=== PATIENT | female | born 2000 | race Caucasian/White ===

== ENCOUNTER 2023-07-11 23:23 | Emergency (ER) | payer OTHER, SELFPAY ==
[2023-07-11 23:26] VITALS: BP 140/94
--- NOTE | 2023-07-11 23:59 | ED.GENMED ---
History of Present Illness
General
Chief Complaint: Bowel Problem
Source: patient and significant other
Time Seen by Provider: 07/11/23 23:34
Travel History
Have you had any contact with someone who has COVID-19?: No
Do you have any symptoms of coronavirus? Fever > 100 degrees, chills, cough, shortness of breath, sore throat, loss of taste or smell, muscle aches, or headache?: No
History of Present Illness
History of Present Illness:
This patient is a 22-year-old female who states that for at least the last 1 if not 2 months she has had intermittent constipation relieved with laxatives. Her last bowel movement was this morning and states that she passed 'a decent amount' of
stool without black stool or blood. However, since that time, she complains of tyree cramping associated with an episode of vomiting just prior to presentation. She feels abdominal distention and feels 'full' to the point where she has not eaten
as much as she typically would today. Patient states that she went out to dinner last night and does admit to admit to drinking alcohol at that time. She denies objective measurement of fever, chest pain, shortness of breath, urinary symptoms.
Her last menstrual cycle was 1 week ago. The abdominal cramping is intermittent and generalized. Patient wanted to come today to make sure everything was okay.
Past History
Past History
ED Past Medical History: Psychiatric (ADHD, anxiety, depression, bipolar disorder)
ED Past Surgical History: Other (Breast reduction)
Social History
Tobacco: Smoker
Alcohol: Binge drinker
Drug: Other (amphetamines)
Personal: Single
Living: with family
Employment: Employed
Phy Exam
Physical Exam
Physical Exam:
GENERAL: Alert , in no apparent distress
EYE: pupils equal and reactive
NECK: Supple, no significant adenopathy.
ENT: o/p clr, mmm.
CARDIAC: Regular rate and rhythm .
LUNGS: Clear breath sounds bilaterally, no acute respiratory distress, no wheezes/rales/rhonchi
ABDOMEN: Soft, without focal tenderness, no r/g, normal active bowel sounds, no cvat
NEUROLOGICAL: Alert and oriented, no focal neuro deficits
SKIN: Warm and dry, skin intact.
MUSCULOSKELETAL: No edema, well perfused.
PSYCH: Normal and appropriate interaction.
Course
Orders/Labs/Results
Orders:
Orders
07/11/23 23:59
Complete Blood Count/No Diff Urgent
Comprehensive Metabolic Panel Urgent
HCG, Serum Qualitative Screen Urgent
Lipase Urgent
Test Result ONCE
07/12/23 00:01
CR Obstruct Series W/pa Chest Urgent
Reason For Exam: N/V/CONSTIPATION
Abnormal Lab Results
07/12/23
00:29
Sodium 134 L mmol/L
(135-145)
Chloride 97 L mmol/L
(98-107)
Glucose 106 H mg/dl
(70-99)
07/12/23 00:29
07/12/23 00:29
Vital Signs
Initial and Last Documented VS:
Initial Vital Signs
Temp Pulse Resp BP Pulse Ox
98.7 F 124 22 140/94 98
07/11/23 23:26 07/11/23 23:26 07/11/23 23:26 07/11/23 23:26 07/11/23 23:26
Last Documented Vital Signs
Temp Pulse Resp BP Pulse Ox
98.7 F 115 20 123/76 100
07/11/23 23:26 07/12/23 00:47 07/12/23 00:47 07/12/23 00:47 07/12/23 00:47
*Critical Care Note
Total Time (30-74mins, 75-104mins- exclusive of procedures): Not Applicable
Update Note
Update Note:
Patient presents to the Emergency Department with abdominal pain and vomiting
Number and Complexity of Problems Addressed at the Encounter
� Chronic conditions affecting care:
� Acute Exacerbation and/or Progression of Chronic Illness:
� Differential Diagnosis includes: But not limited to bowel obstruction constipation, IBS, , etc.
Amount and/or Complexity of Data to be Reviewed and Analyzed
� I performed an independent evaluation of and my interpretation is:
EKG:
CT:
Xrays:read by me,no obstruction, no fa, nad
Laboratory Studies:generally unremkarable
Other:
� Review of other/old records reveals:
� Clinical information was obtained by an independent historian: Significant other who is at bedside
� Prescriptions/Medications Considered but not given:
� Further testing considered but not performed:
Risk of Complications and/or Morbidity or Mortality of Patient Management
� Social determinants of health affecting care:
� Discussion with other providers (PCP, Hospitalists, Consultants, etc):
� Escalation of care including admission/observation vs risk of discharge considered: 110 am W/u unremkarable here,a bd soft and nontnder. Low suspcion for acute emergent pathology given reassuring exam and w/u here. D/w pt
import of f/ua nd reasons to rted.
ED Attending Note
-
Portions of this chart may have been created with voice recognition software.� Occasional wrong word or��sound alike� substitutions may have occurred due to the inherent limitations of voice recognition software.
Discharge Plan
Departure
Patient Disposition: Home (Routine Discharge)
Date of Disposition: 07/12/23
Time of Disposition: :24
Patient with high blood pressure during this ER visit?: Yes
Condition: Good
Discharge Problem:
Abdominal pain
Instructions: Abdominal Pain, BLOOD PRESSURE
Prescriptions:
No Action
No Current Medications
0
Referrals:
[facility] [Provider Group] - Next open appointment
[facility] [Outside]
NONE,* [Family Provider] -
Activity Restrictions/Additional Instructions:
IF YOU DEVELOP INCREASING NEW OR RECURRENT ABDOMINAL PAIN, REPEATED VOMITING, BLEEDING, FEVER, CHEST PAIN, SHORTNESS OF BREATH, OR OTHER WORRISOME SIGNS, PLEASE RETURN TO THE ER IMMEDIATELY.
Interventions
Interventions:
*Risk Screen - Suicide Last Done: 07/11/23 23:26
*General Assessment Last Done: 07/12/23 00:18
*Neglect/Abuse Screening Last Done: 07/11/23 23:26
*ED COVID-19 Vaccine History Last Done: 07/12/23 00:18
SD-Vgnjxq-Ayjicleiuw Assessment Last Done: 07/12/23 00:31
[2023-07-12 00:18] VITALS: BMI 27.9
[2023-07-12 00:38] LABS: Hematocrit 39.1 % (37.0-47.0); Hemoglobin 13.5 g/dL (12.0-16.0); Mean Corp Hgb Conc. 34.5 g/dL (33.0-37.0); Mean Corpuscular Hgb 29.9 pg (27.0-31.0); Mean Corpuscular Volume 86.5 fL (81.0-99.0); Mean Platelet Volume 9.9 fL (7.4-10.4); Platelet Count 244 10^3/uL (130-400); Red Blood Cell Count 4.52 10^6/uL (4.20-5.40); Red Cell Dist. Width 13.8 % (11.5-14.5); White Blood Cell Count 10.5 10^3/uL (4.8-10.8)
[2023-07-12 00:47] VITALS: BP 123/76
[2023-07-12 00:48] LABS: ALT (SGPT) 19 U/L (0-35); AST (SGOT) 27 U/L (14-36); Alkaline Phosphatase 78 U/L (38-126); Blood Urea Nitrogen 8 mg/dl (7-17); Calcium 9.4 mg/dl (8.4-10.2); Carbon Dioxide 24 mmol/L (22-30); Chloride 97 mmol/L (98-107); Estimated Creatinine Clearance > 125 ml/min; Glucose 106 mg/dl (70-99); Potassium 3.8 mmol/L (3.5-5.1); Sodium 134 mmol/L (135-145); Total Bilirubin 0.6 mg/dl (0.2-1.3); eGFR > 60.00
[2023-07-12 01:07] LABS: Lipase 75 U/L (23-300)
[2023-07-12 01:23] LABS: HCG, Serum Qualitative Screen Negative
== END 2023-07-12 01:35 | disposition home or self-care (01) ==
LOC: EMR 23:23
PROVIDERS: EMERGENCY PHYSICIAN Emergency Medicine
DX: R10.9 Unspecified abdominal pain (principal); F90.9 Attention-deficit hyperactivity disorder, unspecified type; F41.8 Other specified anxiety disorders; F31.9 Bipolar disorder, unspecified; F17.200 Nicotine dependence, unspecified, uncomplicated
CPT/HCPCS: 99283; 74022; 80053; 83690; 84703; 85027